=== PATIENT | female | born 1990 | race Two or more races ===

== ENCOUNTER 2020-09-16 12:25 | Emergency (ER) | payer SELFPAY ==
[~2020-09-16] VITALS: Ht 175.3 cm; Wt 95.3 kg
[2020-09-16 14:20] VITALS: BP 13/88
== END 2020-09-16 14:32 | disposition home or self-care (01) ==
LOC: ER 12:25
DX: S05.01XA Injury of conjunctiva and corneal abrasion without foreign body, right eye, initial encounter (principal); X58.XXXA Exposure to other specified factors, initial encounter; Y93.89 Activity, other specified; Y92.89 Other specified places as the place of occurrence of the external cause; Y99.8 Other external cause status